=== PATIENT | female | born 1945 | race Hispanic/Latino ===

== ENCOUNTER 2018-02-28 19:44 | Inpatient (IN) | payer OTHER ==
[~2018-02-28] VITALS: Ht 162.6 cm; Wt 80.2 kg
[2018-02-28] VITALS (10 sets, daily range): BP systolic 91–151; BP diastolic 40–78
[2018-02-28] MEDS ORDERED: SODIUM CHLORIDE 0.9% 500ML 500 ML IV SCH (20:45)
[2018-02-28] MEDS ORDERED: ACETAMINOPHEN 325 MG TAB PO PRN (20:45)
[2018-02-28 21:16] LABS: HEMATOCRIT 36.6 % (36-48); MEAN CORPUSCULAR HEMOGLOBIN 28.9 pg (27.0-33.0); MEAN CORPUSCULAR HGB CONC 34.2 g/dL (32.0-36.0); MEAN CORPUSCULAR VOLUME 84.4 fL (79-99); PLATELET COUNT (AUTO) 189 K/uL (130-400); RED BLOOD CELL COUNT(AUTO) 4.34 MIL/uL (4.00-5.50); RED CELL DISTRIBUTION WIDTH 13.7 % (11.0-15.5); WHITE BLOOD COUNT (AUTO) 5.4 K/uL (4.8-10.8)
[2018-02-28] MEDS ORDERED: HYDR12.530 PO (21:16)
[2018-02-28] MEDS ORDERED: DILT30TA3 PO (21:16)
[2018-02-28] MEDS ORDERED: PRAV20TA4 PO (21:16)
[2018-02-28] MEDS ORDERED: ASPI-1005 PO (21:16)
[2018-02-28] MEDS ORDERED: LEVE250T2 PO (21:16)
[2018-02-28] MEDS ORDERED: VALS160T29 PO (21:16)
[2018-02-28 21:25] LABS: INR 0.98 (0.85-1.15); PARTIAL THROMBOPLASTIN TIME 30.1 SEC (26.3-35.5); PROTHROMBIN TIME 10.3 SEC (9.6-11.6)
[2018-02-28 21:37] LABS: CARBON DIOXIDE 27 mmol/L (21-32); CHLORIDE 104 mmol/L (101-111); CREATINE KINASE MB 0.7 ng/mL (0.5-3.6); CREATINE KINASE, TOTAL 36 U/L (21-232); CREATININE 0.9 mg/dL (0.5-1.5); GLOMERULAR FILTR. RATE CALC 66 mL/min (>60); GLUCOSE,RANDOM 174 mg/dL (70-105); MYOGLOBIN 40 ng/mL (10-92); POTASSIUM 3.6 mmol/L (3.5-5.1); SODIUM SERUM 140 mmol/L (136-145); TROPONIN I < 0.04 ng/mL (0.00-0.06); UREA NITROGEN, BLOOD 11 mg/dL (7-18)
[2018-02-28] MEDS: METOPROLOL TARTRATE 25 MG TAB PO SCH ×2 (22:09→22:14)
[2018-02-28] MEDS: LEVETIRACETAM 250 MG TABLET PO SCH (22:09)
[2018-02-28] MEDS: ATORVASTATIN CALCIUM 40 MG TABLET PO SCH (22:09)
[2018-02-28] MEDS: PROPAFENONE HCL 150 MG TABLET PO SCH (22:15)
[2018-03-01] VITALS (32 sets, daily range): BP systolic 83–181; BP diastolic 38–89
[2018-03-01] MEDS: CEFTRIAXONE SODIUM 1 GM IV SCH ×2 (01:59→09:28)
[2018-03-01 04:17] LABS: CHOLESTEROL 147 mg/dL (<200); CREATINE KINASE MB 0.7 ng/mL (0.5-3.6); CREATINE KINASE, TOTAL 32 U/L (21-232); HDL CHOLESTEROL 42 mg/dL (35-85); LDL DIRECT 81 mg/dL (0-99); MYOGLOBIN 43 ng/mL (10-92); TRIGLYCERIDES 147 mg/dL (30-200); TROPONIN I < 0.04 ng/mL (0.00-0.06)
[2018-03-01] MEDS: PROPAFENONE HCL 150 MG TABLET PO SCH ×5 (05:00→21:28)
[2018-03-01] MEDS: HYDROCHLOROTHIAZIDE 25 MG TABLET PO SCH (08:20)
[2018-03-01] MEDS: METOPROLOL TARTRATE 25 MG TAB PO SCH ×2 (08:20→21:24)
[2018-03-01] MEDS: LOSARTAN 50 MG TABLET PO SCH (08:20)
[2018-03-01] MEDS: ASPIRIN 81MG TAB.CHEW PO SCH (09:28)
[2018-03-01] MEDS: LEVETIRACETAM 250 MG TABLET PO SCH ×2 (09:28→21:20)
[2018-03-01] MEDS ORDERED: HEPARIN SODIUM 1000UNIT/ML 10ML VIAL ONE (17:18)
[2018-03-01] MEDS ORDERED: ISOVUE-370 50ML VIAL IV ONE ×2 (17:18→18:28)
[2018-03-01] MEDS ORDERED: LIDOCAINE HCL 2% 20ML ONE (17:18)
[2018-03-01] MEDS ORDERED: NITROGLYCERIN 5 MG/ML 10 ML VIAL IV ONE (17:18)
[2018-03-01] MEDS ORDERED: IOPAMIDOL-370 100 ML VIAL IV ONE (17:18)
[2018-03-01] MEDS ORDERED: BIVALIRUDIN 250 MG/VIAL IV ONE (17:51)
[2018-03-01] MEDS ORDERED: LABETALOL HCL 5 MG/ML 20ML VIAL IV ONE (18:18)
[2018-03-01] MEDS ORDERED: SODIUM CHLORIDE 0.9% 1000ML 1,000 ML IV SCH (18:37)
[2018-03-01] MEDS ORDERED: ACETAMINOPHEN-CODEINE 300/30MG TAB PO PRN ×2 (18:45)
[2018-03-01] MEDS ORDERED: METO-391 PO (18:46)
[2018-03-01] MEDS: ATORVASTATIN CALCIUM 40 MG TABLET PO SCH (21:24)
[2018-03-02 00:40] VITALS: BP 137/66
[2018-03-02 04:05] VITALS: BP 141/67
[2018-03-02 04:18] LABS: HEMATOCRIT 34.6 % (36-48); MEAN CORPUSCULAR HEMOGLOBIN 29.9 pg (27.0-33.0); MEAN CORPUSCULAR HGB CONC 35.5 g/dL (32.0-36.0); MEAN CORPUSCULAR VOLUME 84.2 fL (79-99); PLATELET COUNT (AUTO) 168 K/uL (130-400); RED BLOOD CELL COUNT(AUTO) 4.11 MIL/uL (4.00-5.50); RED CELL DISTRIBUTION WIDTH 13.7 % (11.0-15.5); WHITE BLOOD COUNT (AUTO) 7.5 K/uL (4.8-10.8)
[2018-03-02 04:34] LABS: CREATININE 0.8 mg/dL (0.5-1.5); POTASSIUM 3.8 mmol/L (3.5-5.1)
[2018-03-02] MEDS: PROPAFENONE HCL 150 MG TABLET PO SCH ×2 (05:44→12:13)
[2018-03-02 08:02] VITALS: BP 111/59
[2018-03-02] MEDS ORDERED: CIPR250T6 PO (09:27)
[2018-03-02] MEDS: LOSARTAN 50 MG TABLET PO SCH (09:36)
[2018-03-02] MEDS: LEVETIRACETAM 250 MG TABLET PO SCH (09:36)
[2018-03-02] MEDS: HYDROCHLOROTHIAZIDE 25 MG TABLET PO SCH (09:36)
[2018-03-02] MEDS: ASPIRIN 81MG TAB.CHEW PO SCH (09:36)
[2018-03-02] MEDS: METOPROLOL TARTRATE 25 MG TAB PO SCH (09:36)
[2018-03-02] MEDS: CEFTRIAXONE SODIUM 1 GM IV SCH (09:37)
[2018-03-02 12:03] VITALS: BP 103/55
[2018-03-02 16:00] VITALS: BP 98/52
[2018-03-02] MEDS ORDERED: METOPROLOL TARTRATE 25 MG TAB PO SCH (21:00)
== END 2018-03-02 18:40 | disposition home or self-care (01) | DRG 287 ==
LOC: 2CH 20:23 → 2AH 03-01 18:58
PROVIDERS: ADMIT Family Medicine; ATTEND Family Medicine
PROC: 4A023N7 Measurement of Cardiac Sampling and Pressure, Left Heart, Percutaneous Approach (ICD-10-PCS; principal; 2018-03-01)
PROC: B2111ZZ Fluoroscopy of Multiple Coronary Arteries using Low Osmolar Contrast (ICD-10-PCS; 2018-03-01)
PROC: B2151ZZ Fluoroscopy of Left Heart using Low Osmolar Contrast (ICD-10-PCS; 2018-03-01)
PROC: B41F1ZZ Fluoroscopy of Right Lower Extremity Arteries using Low Osmolar Contrast (ICD-10-PCS; 2018-03-01)
DX: I25.110 Atherosclerotic heart disease of native coronary artery with unstable angina pectoris (principal); I24.9 Acute ischemic heart disease, unspecified; N39.0 Urinary tract infection, site not specified; I47.1 Supraventricular tachycardia; E78.5 Hyperlipidemia, unspecified; I10 Essential (primary) hypertension; G40.909 Epilepsy, unspecified, not intractable, without status epilepticus; I49.3 Ventricular premature depolarization; Z90.710 Acquired absence of both cervix and uterus; F41.9 Anxiety disorder, unspecified; Z28.21 Immunization not carried out because of patient refusal
CPT/HCPCS: 36415; 80048; 80061; 80177; 82550; 82553; 82948; 83874; 84484; 85027; 85610; 85730; 93005; 93458; A4218; C1760; C1894; J0583; J0696; J1644; J3490; J7030; J7040; Q9967

== ENCOUNTER 2019-01-11 08:27 | Day surgery (SDC) | payer OTHER ==
[2019-01-09 11:07] VITALS: BP 145/63
[2019-01-09 11:28] LABS: BASOPHILS % (AUTO) 1.3 % (0.0-5.0); EOSINOPHILS % (AUTO) 4.8 % (0.0-8.0); HEMATOCRIT 37.8 % (36-48); LYMPHOCYTES % (AUTO) 31.1 % (21.0-51.0); MEAN CORPUSCULAR HGB CONC 33.6 g/dL (32.0-36.0); MEAN CORPUSCULAR VOLUME 86.1 fL (79-99); MONOCYTES % (AUTO) 6.4 % (3.0-13.0); NEUTROPHILS % (AUTO) 56.4 % (40.0-77.0); NUCLEATED RED BLOOD CELLS 0.1 % (0.0-0.19); PLATELET COUNT (AUTO) 160 K/uL (130-400); RED BLOOD CELL COUNT(AUTO) 4.39 MIL/uL (4.00-5.50); RED CELL DISTRIBUTION WIDTH 13.9 % (11.0-15.5); WHITE BLOOD COUNT (AUTO) 4.9 K/uL (4.8-10.8)
[2019-01-09 11:34] LABS: CREATININE 0.8 mg/dL (0.5-1.5); POTASSIUM 4.3 mmol/L (3.5-5.1)
[2019-01-09 11:43] LABS: INR 0.98 (0.85-1.15); PARTIAL THROMBOPLASTIN TIME 29.9 SEC (26.3-35.5); PROTHROMBIN TIME 10.3 SEC (9.6-11.6)
[~2019-01-11] VITALS: Ht 160 cm; Wt 76.7 kg
[2019-01-11] VITALS (9 sets, daily range): BP systolic 126–148; BP diastolic 62–82
[~2019-01-11 08:27] MED LIST: AMLO5TAB9 PO; ASPI-1005 PO; HYDR12.530 PO; LEVE250T2 PO; LOSA50TA64 PO; METO-391 PO; PRAV20TA4 PO; PROP225T3 PO; SODIUM CHLORIDE 0.9% 1000ML 1,000 ML IV SCH
[2019-01-11] MEDS ORDERED: LIDOCAINE HCL 2% 20ML ONE (13:00)
--- NOTE | 2019-01-11 13:00 | NUR ---
PROCEDURE pt taken to shift lab technician for procedure via bed, no distress noted. family at bedside.
[2019-01-11] MEDS ORDERED: HEPARIN SODIUM 1000UNIT/ML 10ML VIAL ONE (13:20)
[2019-01-11] MEDS ORDERED: MEPERIDINE-PF 25 MG/ML SYG ONE (13:45)
[2019-01-11] MEDS ORDERED: MIDAZOLAM HCL 1 MG/ML 2ML VIAL ONE (13:45)
[2019-01-11] MEDS ORDERED: ISOPROTERENOL HCL 0.2 MG/ML AMP/VIAL/BAG ONE (14:27)
--- NOTE | 2019-01-11 15:50 | NUR ---
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 FAMILY AND PATIENT INSTRUCTED ON BEING ON BEDREST FOR 3 HOURS TO PREVENT BLEEDING. BOTH VERBALIZED UNDERSTANDING AND AGREED TO COMPLY. CALL [facility] WITHIN REACH AND ENCOURAGED TO CALL.
--- NOTE | 2019-01-11 18:45 | NUR ---
PATIENT ASSISTED UP TO CHAIR AND TO CHANGE. RIGHT AND LEFT GROIN SHOW NO ACTIVE BLEEDING. PATIENT STATES FEELING FINE PATIENT DENIES ANY CHEST PAIN OR SOB.
== END 2019-01-11 19:04 | disposition home or self-care (01) ==
LOC: DAH 08:27
PROVIDERS: ATTEND Internal Medicine Cardiovascular Disease
DX: I47.1 Supraventricular tachycardia (principal); I25.10 Atherosclerotic heart disease of native coronary artery without angina pectoris; E78.5 Hyperlipidemia, unspecified; I10 Essential (primary) hypertension; Z79.899 Other long term (current) drug therapy; Z98.890 Other specified postprocedural states; Z79.01 Long term (current) use of anticoagulants
CPT/HCPCS: 36415; 80048; 85025; 85610; 85730; 93005; 93620; 93621; 93623; A4606; A4649; C1730 ×4; C1894 ×5; J1644; J2175; J2250; J3490 ×2; J7030; 93622; 99152; 99153

== ENCOUNTER → 2023-10-26 | Outpatient (CLI) | payer OTHER, MEDICARE ==
[~2023-10-26] MED LIST changes: +AMLO-257 PO; -AMLO5TAB9 PO; -METO-391 PO; -PROP225T3 PO; -SODIUM CHLORIDE 0.9% 1000ML 1,000 ML IV SCH
[2023-10-26 12:30] LABS: CREATININE 0.8 mg/dL (0.5-1.5); POTASSIUM 4.4 mmol/L (3.5-5.1)
== END | disposition home or self-care (01) ==
LOC: LAB 10:25
PROVIDERS: ATTEND Internal Medicine Cardiovascular Disease
DX: I10 Essential (primary) hypertension (principal); I47.20 Ventricular tachycardia, unspecified
CPT/HCPCS: 36415; 80048; 83735